=== PATIENT | female | born 1985 | race Two or more races ===

== ENCOUNTER → 2021-04-16 | Day surgery (SDC) | payer OTHER ==
[~2021-04-16] MED LIST: SINGULAIR10 MG PO; ZYRTEC10 M3 PO
== END | disposition home or self-care (01) ==
LOC: ADM 04-10 07:30 → CIR.AMB 06:30
PROVIDERS: ATTEND Obstetrics & Gynecology Maternal & Fetal Medicine
DX: D27.1 Benign neoplasm of left ovary (principal); N80.1 Endometriosis of ovary; N84.0 Polyp of corpus uteri; N73.6 Female pelvic peritoneal adhesions (postinfective); Z20.822 Contact with and (suspected) exposure to COVID-19

== ENCOUNTER 2024-09-28 14:15 | Inpatient (IN) | payer OTHER ==
[~2024-09-28] VITALS: Ht 162.6 cm; Wt 83.5 kg
[~2024-09-28 14:15] MED LIST changes: +PRENATE DHA SO1 EAC1 PO
[2024-10-10 12:36] VITALS: BP 109/69
[2024-10-10 12:39] VITALS: BP 109/69
[2024-10-10] MEDS ORDERED: MISOPROSTOL 25 MCG TABLET VAG ONE (13:15)
[2024-10-10] MEDS ORDERED: PEPCID AC20 MG PO (13:26)
[2024-10-10] MEDS ORDERED: HIERRO PO (13:26)
[2024-10-10 13:39] LABS: HEMATOCRIT 30.5 % (36.0-45.00); HEMOGLOBIN 10.7 g/dL (12.0-15.00); MEAN CELL VOLUME 83.3 fL (80.00-100.00); MEAN CORPUSCULAR HEMOGLOBIN 29.1 pg (27.00-32.0); MEAN CORPUSCULAR HGB CONC 34.9 g/dl (32.0-36.0); PLATELET COUNT 263 K/uL (150-450); RED BLOOD COUNT 3.66 M/uL (4.00-6.00); RED CELL DISTRIBUTION WIDTH 14.2 % (11.5-14.5)
[2024-10-10 13:47] LABS: URINE APPEARANCE Clear; URINE BACTERIA 90.6 uL (0.0-1933); URINE BILIRRUBIN Negative (NEGATIVE); URINE BLOOD Negative; URINE COLOR Yellow; URINE EPITHELIAL CELLS 5.6 uL (0.0-38.8); URINE GLUCOSE Negative (NEGATIVE); URINE KETONE Negative (NEGATIVE); URINE LEUKOCYTE Negative; URINE NITRATE Negative; URINE PROTEIN Negative (NEGATIVE); URINE UROBILINOGEN 0.2 E.U./dl
[2024-10-10 14:18] LABS: INR < 0.93; PARTIAL THROMBOPLASTIN TIME 24.8 SECONDS (22.0-34.0); PROTHROMBIN TIME 9.8 SECONDS (9.0-11.5)
[2024-10-10 14:21] LABS: URINE RBC 0.6 uL (0.0-20.8); URINE WBC 1.5 uL (0.0-23.2)
[2024-10-10 14:55] LABS: ALBUMIN 2.3 gm/dL (3.4-5.0); BILIRUBIN TOTAL 0.31 mg/dL (0.3-1.2); CALCIUM 9.3 mg/dL (8.5-10.1); CREATININE SERUM 0.51 mg/dL (0.55-1.02); GFR 133.56; GLOBULINA 3.5 G/DL (2.4-3.5); POTASSIUM 4.31 mEq/L (3.5-5.1); TOTAL PROTEIN 5.8 gm/dL (6.4-8.2)
[2024-10-10 15:30] VITALS: BP 100/69
[2024-10-10] MEDS ORDERED: MORPHINE SULFATE 4 MG/ML CARTRIDGE IV PRN (16:45)
[2024-10-10] MEDS ORDERED: FAMOTIDINE/PF 20 MG in 0.9 % SODIUM CHLORIDE 8 ML IV PUSH PRN (16:45)
[2024-10-10 20:03] VITALS: BP 91/58
[2024-10-11 00:15] VITALS: BP 96/63
[2024-10-11 04:08] VITALS: BP 104/71
[2024-10-11] MEDS ORDERED: OXYTOCIN 500 ML IV ONE (07:30)
[2024-10-11 08:24] VITALS: BP 110/73
[2024-10-11 11:40] VITALS: BP 103/53
[2024-10-11 15:55] VITALS: BP 98/59
[2024-10-11] MEDS ORDERED: ERYTHROMYCIN BASE OPHT 1GM EACH TUBE OP ONE (16:30)
[2024-10-11] MEDS ORDERED: OXYTOCIN 10 UNITS/ML VIAL IV ONE (16:30)
[2024-10-11] MEDS ORDERED: MORPHINE SULFATE 4 MG/ML CARTRIDGE IV SCH (17:00)
[2024-10-11] MEDS ORDERED: OXYTOCIN 1,000 ML IV ONE (17:00)
[2024-10-11] MEDS ORDERED: KETOROLAC TROMETHAMINE 30 MG VIAL IV SCH (18:00)
[2024-10-11] MEDS ORDERED: MORPHINE SULFATE 4 MG/ML VIAL IV ONE (18:40)
[2024-10-11 21:44] VITALS: BP 107/60
[2024-10-12 00:59] VITALS: BP 111/72
[2024-10-12] MEDS ORDERED: ACETAMINOPHEN 500 MG GEL..CAP PO SCH (06:00)
[2024-10-12 07:47] LABS: HEMATOCRIT 23.9 % (36.0-45.00); MEAN CELL VOLUME 83.9 fL (80.00-100.00); MEAN CORPUSCULAR HGB CONC 35.3 g/dl (32.0-36.0); PLATELET COUNT 203 K/uL (150-450); RED BLOOD COUNT 2.85 M/uL (4.00-6.00)
[2024-10-12 08:07] LABS: HEMOGLOBIN 8.4 g/dL (12.0-15.00); MEAN CORPUSCULAR HEMOGLOBIN 29.4 pg (27.00-32.0)
[2024-10-12] MEDS ORDERED: DOCUSATE SODIUM 100MG CAP PO SCH (09:00)
[2024-10-12] MEDS ORDERED: GABAPENTIN 300 MG CAPSULE PO SCH (09:00)
[2024-10-12] MEDS ORDERED: SIMETHICONE 125 MG CAPSULE PO SCH (09:00)
[2024-10-12] MEDS ORDERED: PNV,CALCIUM 72/IRON/FOLIC ACID 1 TAB TABLET PO SCH (09:00)
[2024-10-12] MEDS ORDERED: IBUprofen 600 MG TABLET PO SCH (12:00)
[2024-10-12] MEDS ORDERED: KETOROLAC TROMETHAMINE 10 MG TABLET PO SCH (12:00)
[2024-10-12] MEDS ORDERED: OxyCODONE HCL/APAP UD (PERCOCET) PO SCH (13:00)
[2024-10-12 15:57] VITALS: BP 134/79
[2024-10-13 00:29] VITALS: BP 109/71
[2024-10-13] MEDS ORDERED: OXYC1TAB9 PO (09:19)
[2024-10-13] MEDS ORDERED: KETO10TA2 PO (09:19)
[2024-10-13 09:41] VITALS: BP 110/74
== END 2024-10-13 13:22 | disposition home or self-care (01) | DRG 788 ==
LOC: LDR 10-10 12:51 → OB/GYN 10-11 16:25 → LDR 10-15 14:15
PROVIDERS: Obstetrics & Gynecology Gynecology; ADMIT Obstetrics & Gynecology; ATTEND Obstetrics & Gynecology
PROC: 3E0P7VZ Introduction of Hormone into Female Reproductive, Via Natural or Artificial Opening (ICD-10-PCS; 2024-10-10)
PROC: 4A1HXCZ Monitoring of Products of Conception, Cardiac Rate, External Approach (ICD-10-PCS; 2024-10-10)
PROC: 3E033VJ Introduction of Other Hormone into Peripheral Vein, Percutaneous Approach (ICD-10-PCS; 2024-10-11)
PROC: 10D00Z1 Extraction of Products of Conception, Low, Open Approach (ICD-10-PCS; principal; 2024-10-11 17:45)
DX: O82 Encounter for cesarean delivery without indication (principal); O61.0 Failed medical induction of labor; Z3A.39 39 weeks gestation of pregnancy; Z37.0 Single live birth; Z20.822 Contact with and (suspected) exposure to COVID-19